=== PATIENT | male | born 1995 | race Caucasian/White ===

== ENCOUNTER 2016-09-17 20:48 | Emergency (ER) | payer OTHER ==
[~2016-09-17] VITALS: Ht 182.9 cm; Wt 99.8 kg
[2016-09-17 20:49] VITALS: BP 146/72
[2016-09-17] MEDS ORDERED: LEXA1TAB PO (20:59)
[2016-09-17] MEDS ORDERED: WELLTAB38 PO (20:59)
[2016-09-17] MEDS ORDERED: ZYRT10CA PO (21:00)
[2016-09-17] MEDS ORDERED: FLON1SPR (21:00)
[2016-09-17] MEDS ORDERED: GUAIDM5UD PO (21:24)
[2016-09-17] MEDS ORDERED: AUGM875T27 PO (21:24)
[2016-09-17] MEDS ORDERED: AUGMENTIN 875 MG TAB PO ONE (21:30)
== END 2016-09-17 21:37 | disposition home or self-care (01) ==
LOC: M ED 21:32
DX: H66.91 Otitis media, unspecified, right ear (principal); J01.90 Acute sinusitis, unspecified; J30.2 Other seasonal allergic rhinitis; Z87.891 Personal history of nicotine dependence

== ENCOUNTER 2017-08-02 08:53 | Emergency (ER) | payer OTHER ==
[2017-08-02] MEDS: ONDANSETRON 4MG/2ML VIAL (J2405) IV (11:25)
[2017-08-02] MEDS: NS 1,000 ML IV (11:25)
[2017-08-02 11:43] LABS: BASO % 0.4 % (0.0-1.0); EOS # 0.1 10^3/uL (0.0-0.50); EOS % 1.1 % (0.0-3.0); HEMATOCRIT 41.1 % (42.0-52.0); HEMOGLOBIN 14.3 g/dl (14.0-18.0); IMMATURE GRANULOCYTE % 0.4 % (0-3.0); LYMPH # 2.3 10^3/uL (1.5-6.5); LYMPH % 32.4 % (24.0-44.0); MEAN CORPUSCULAR HEMOGLOBIN 29.5 pg (27.0-33.0); MEAN CORPUSCULAR HGB CONC 34.8 g/dl (32.0-36.5); MEAN CORPUSCULAR VOLUME 84.9 fl (80.0-96.0); MONO # 0.7 10^3/uL (0.0-0.8); MONO % 9.1 % (0.0-5.0); NEUTROPHILS % 56.6 % (36.0-66.0); PLATELET COUNT, AUTOMATED 223 10^3/uL (150-450); RED BLOOD COUNT 4.84 10^6/uL (4.30-6.10); RED CELL DISTRIBUTION WIDTH 12.2 % (11.5-14.5); WHITE BLOOD COUNT 7.1 10^3/uL (4.0-10.0)
[2017-08-02 12:12] LABS: ALBUMIN 3.8 GM/DL (3.2-5.2); ALKALINE PHOSPHATASE 58 U/L (45-117); ALT/SGPT 45 U/L (12-78); ANION GAP 5 MEQ/L (8-16); AST/SGOT 36 U/L (7-37); BILIRUBIN,DIRECT < 0.1 MG/DL (0.0-0.2); BILIRUBIN,TOTAL 0.5 MG/DL (0.2-1.0); BLOOD UREA NITROGEN 12 MG/DL (7-18); CARBON DIOXIDE LEVEL 28 MEQ/L (21-32); CHLORIDE LEVEL 108 MEQ/L (98-107); CREATININE FOR GFR 0.91 MG/DL (0.70-1.30); GLOMERULAR FILTRATION RATE > 60.0 (>60); GLUCOSE, FASTING 103 MG/DL (70-100); LIPASE 115 U/L (73-393); POTASSIUM SERUM 4.7 MEQ/L (3.5-5.1); SODIUM LEVEL 141 MEQ/L (136-145); TOTAL PROTEIN 7.6 GM/DL (6.4-8.2)
[2017-08-02] MEDS ORDERED: ISOVUE-370 76% 100ML VIAL (Q9967) As Ordered (12:12)
== END 2017-08-02 13:55 | disposition home or self-care (01) ==
LOC: M ED 08:53
DX: A08.4 Viral intestinal infection, unspecified (principal); F17.210 Nicotine dependence, cigarettes, uncomplicated
CPT/HCPCS: J2405